=== PATIENT | male | born 1955 | race Caucasian/White ===

== ENCOUNTER 2022-10-14 10:06 | Outpatient (OUT) | payer MEDICARE, OTHER, SELFPAY ==
--- NOTE | 2022-10-14 10:24 | CT_ITS ---
The [address] [address] Patient Name: ELOISE TRAVIS MRN: [id number] date: 1955 Sex: M Assigned Patient Location: CT Current Patient Location: CT Accession/Order Number: [id number] Exam Date: 10/14/2022 10:18 Report Date: 10/14/2022 11:05 At the request of: MARKELL CLEMENT Procedure: CT lung screening low-dose EXAMINATION: CT lung screening low-dose HISTORY: Nicotine Dependence F17.211 COMPARISON: CT chest 08/11/2021 TECHNIQUE: Axial, Coronal, and Sagittal images were created without the administration of IV contrast material. Dose reduction techniques were achieved by using automated exposure control and/or adjustment of mA and/or kV according to patient size and/or use of iterative reconstruction technique. FINDINGS: LUNGS: Stable elevated left hemidiaphragm with passive atelectasis and partial collapse of the basilar segments of left lower lobe similar to prior study. No suspicious nodules or acute infiltrates. PLEURA: No mass, effusion, or pneumothorax. VASCULATURE: No abnormality. PRAVEENA: No mass or pathologic adenopathy. MEDIASTINUM: No mass or pathologic adenopathy. CARDIAC: Atherosclerotic coronary artery disease. No significant enlargement or pericardial effusion. AORTA: Mild dilation of ascending aorta, 4.1 cm in diameter. CHEST WALL: No mass or axillary adenopathy BONES: No bone lesion or fracture. LIMITED ABDOMEN: No suspicious findings. Limited images of the upper abdomen. OTHER: Negative. CT/CT lung screening low-dose IMPRESSION: 1. Lung-RADS Category 1 Negative. No nodules and definitely benign nodules. Continue annual screening with LDCT in 12 months. Electronically authenticated by: AMANDA BENITEZ Date: 10/14/2022 11:05
== END 2022-10-14 10:07 | disposition home or self-care (01) ==
LOC: CT 10:06
PROVIDERS: PCP Internal Medicine; Visit Provider Internal Medicine
DX: F17.211 Nicotine dependence, cigarettes, in remission (principal)
CPT/HCPCS: 71271

== ENCOUNTER 2023-12-21 10:03 | Outpatient (OUT) | payer OTHER, SELFPAY ==
--- NOTE | 2023-12-21 10:05 | CT_ITS ---
[address] [address] Patient Name: ELOISE TRAVIS MRN: [id number] date: 1955 Sex: M Assigned Patient Location: CT Current Patient Location: Accession/Order Number: [id number] Exam Date: 12/21/2023 10:10 Report Date: 12/22/2023 05:14 At the request of: MARKELL CLEMENT Procedure: CT lung screening low-dose EXAMINATION: CT lung screening low-dose HISTORY: Nicotine Dependence COMPARISON: CT Lung Screening 10/14/2022 TECHNIQUE: Axial, Coronal, and Sagittal images were created without the administration of IV contrast material. Dose reduction techniques were achieved by using automated exposure control and/or adjustment of mA and/or kV according to patient size and/or use of iterative reconstruction technique. FINDINGS: LUNGS: Mild atelectasis within posterior lung bases. Chronic elevation of left hemidiaphragm. No new or suspicious nodules. No appreciable acute infiltrates. PLEURA: No mass, effusion, or pneumothorax. VASCULATURE: No abnormality. PRAVEENA: No mass or pathologic adenopathy. MEDIASTINUM: No mass or pathologic adenopathy. CARDIAC: No enlargement, pericardial thickening, or pericardial effusion. Coronary Artery calcifications: Coronary calcifications are moderate. AORTA: No aneurysm or dissection. CHEST WALL: No mass or axillary adenopathy BONES: Posterior mechanical fusion T8-T9-10. LIMITED ABDOMEN: No suspicious findings. Limited images of the upper abdomen. OTHER: Negative. CT/CT lung screening low-dose IMPRESSION: 1. Lung-RADS Category 1 Negative. No nodules and definitely benign nodules. Continue annual screening with LDCT in 12 months. Electronically authenticated by: AMANDA BENITEZ Date: 12/22/2023 05:14
== END 2023-12-21 10:04 | disposition home or self-care (01) ==
LOC: CT 10:03
PROVIDERS: PCP Internal Medicine; Visit Provider Internal Medicine
DX: F17.211 Nicotine dependence, cigarettes, in remission (principal)
CPT/HCPCS: 71271